=== PATIENT | female | born 1935 | race Caucasian/White ===

== ENCOUNTER 2016-12-10 20:59 | Inpatient (IN) | payer MEDICARE, BC ==
[~2016-12-10] VITALS: Ht 157.5 cm; Wt 63.7 kg
[2016-12-11 00:16] VITALS: BP 122/71
[2016-12-11 01:25] VITALS: BP 123/71
[2016-12-11] MEDS ORDERED: NS + 20MEQ KCL 1,000 ML IV SCH (02:26)
[2016-12-11] MEDS ORDERED: NICOTINE 14MG/24 HR PATCH.TD24 TD SCH (02:30)
[2016-12-11] MEDS ORDERED: LABETALOL 5MG/ML, 20ML IV PRN (02:30)
[2016-12-11] MEDS ORDERED: POLYETHYLENE GLYCOL 17 GM PACKET PO PRN (02:30)
[2016-12-11] MEDS ORDERED: TRAZODONE 50MG TABLET PO PRN (02:30)
[2016-12-11] MEDS ORDERED: BISACODYL 10 MG SUPP PR PRN (02:30)
[2016-12-11] MEDS ORDERED: DOCUSATE 100 MG CAPSULE PO PRN (02:30)
[2016-12-11] MEDS ORDERED: ONDANSETRON 2MG/ML, 2ML IVP PRN (02:30)
[2016-12-11] MEDS: ENOXAPARIN 40 MG/0.4 ML SQ SCH ×2 (03:31→22:54)
[2016-12-11 03:50] LABS: ASPARTATE AMINO TRANSFERASE 120 U/L (15-37); BLOOD UREA NITROGEN 8 mg/dL (7-18)
[2016-12-11 04:05] LABS: DIFF TOTAL CELLS COUNTED 100 CELL DIFF
[2016-12-11 04:18] LABS: ANISOCYTOSIS 1+; HYPOCHROMIA 1+; POLYCHROMASIA 1+
[2016-12-11 04:19] LABS: TARGET CELLS 2+
[2016-12-11 04:21] LABS: LARGE PLATELETS 1+
[2016-12-11] MEDS: INSULIN ASPART 100 UNITS/ML, PEN SQ-INSULIN SCH ×4 (07:00→21:03)
[2016-12-11] MEDS: PANTOPRAZOLE 40 MG IV IVP SCH (07:21)
[2016-12-11] MEDS ORDERED: DEXTROSE 4 GM TAB.CHEW PO PRN (07:30)
[2016-12-11] MEDS ORDERED: GLUCAGON 1 MG IM PRN (07:30)
[2016-12-11] MEDS: DEXTROSE 50%, 50ML SYRINGE IVPush PRN ×2 (07:31→13:23)
[2016-12-11 07:34] VITALS: BP 100/62
[2016-12-11] MEDS: INSULIN DETEMIR 100 UNITS/ML, PEN SQ-INSULIN SCH ×2 (08:39→21:02)
[2016-12-11] MEDS: MORPHINE SULFATE 4 MG/ML, 1ML IVPush PRN (08:45)
[2016-12-11] MEDS: SODIUM CHLORIDE FLUSH 10ML SYR IVF SCH ×2 (08:45→21:02)
[2016-12-11] MEDS ORDERED: POTASSIUM CHLORIDE 40 MEQ in SODIUM CHLORIDE 0.9% 500 ML IV ONE (09:00)
[2016-12-11 14:26] VITALS: BP 103/61
[2016-12-11 14:43] LABS: VERIFY COUNTS? YES
[2016-12-11] MEDS: D5%-0.9% NACL+KCL 20MEQ 1,000 ML IV SCH ×2 (15:01→21:01)
[2016-12-11 20:40] VITALS: BP 110/60
[2016-12-12] MEDS: D5%-0.9% NACL+KCL 20MEQ 1,000 ML IV SCH ×2 (02:11→16:42)
[2016-12-12] MEDS: MORPHINE SULFATE 4 MG/ML, 1ML IVPush PRN ×3 (02:11→19:09)
[2016-12-12 02:13] VITALS: BP 119/69
[2016-12-12] MEDS ORDERED: NS + 20MEQ KCL 1,000 ML IV SCH (02:26)
[2016-12-12 05:44] LABS: ASPARTATE AMINO TRANSFERASE 108 U/L (15-37); BLOOD UREA NITROGEN 6 mg/dL (7-18)
[2016-12-12 06:30] LABS: DIFF TOTAL CELLS COUNTED 100 CELL DIFF
[2016-12-12 06:33] LABS: ANISOCYTOSIS 1+; HYPOCHROMIA 1+; POLYCHROMASIA 1+; TARGET CELLS 2+
[2016-12-12 07:13] LABS: VERIFY COUNTS? YES
[2016-12-12 07:15] VITALS: BP 111/57
[2016-12-12] MEDS: PANTOPRAZOLE 40 MG IV IVP SCH (08:38)
[2016-12-12] MEDS: INSULIN ASPART 100 UNITS/ML, PEN SQ-INSULIN SCH ×4 (08:41→20:10)
[2016-12-12] MEDS: INSULIN DETEMIR 100 UNITS/ML, PEN SQ-INSULIN SCH ×2 (08:42→20:10)
[2016-12-12] MEDS: SODIUM CHLORIDE FLUSH 10ML SYR IVF SCH ×2 (08:43→20:09)
[2016-12-12] MEDS ORDERED: OXYcodone 5 MG/5 ML ORAL.SOL UDC PO PRN (10:30)
[2016-12-12] MEDS ORDERED: ONDANSETRON 2MG/ML, 2ML IVPush PRN (10:30)
[2016-12-12] MEDS ORDERED: FENTANYL PF 100 MCG/2ML IV PRN (10:30)
[2016-12-12] MEDS ORDERED: LABETALOL 5MG/ML, 20ML IV PRN (10:30)
[2016-12-12] MEDS ORDERED: morphine SULFATE 10 MG/ML, 1ML IV PRN (10:30)
[2016-12-12] MEDS ORDERED: hydrALAzine 20 MG/ML, 1ML IV PRN (10:30)
[2016-12-12] MEDS ORDERED: ONDANSETRON 2MG/ML, 2ML ONE (10:45)
[2016-12-12] MEDS ORDERED: ROCURONIUM 10 MG/ML ONE (10:45)
[2016-12-12] MEDS ORDERED: PROPOFOL 10 MG/ML, 20ML ONE (10:45)
[2016-12-12] MEDS ORDERED: SUCCINYLCHOLINE 20 MG/ML, 10ML ONE (10:45)
[2016-12-12] MEDS ORDERED: OMNIPAQUE 350 MG/ML, 50 ML BOTTLE ONE (11:33)
[2016-12-12] MEDS: AMPICILLIN/SULBACTAM 3 GM in SODIUM CHLORIDE 0.9% 100 ML IV SCH ×2 (12:42→18:41)
[2016-12-12 13:33] VITALS: BP 103/60
[2016-12-12 20:40] VITALS: BP 121/64
[2016-12-13] MEDS: AMPICILLIN/SULBACTAM 3 GM in SODIUM CHLORIDE 0.9% 100 ML IV SCH (02:08)
[2016-12-13 02:55] VITALS: BP 99/51
[2016-12-13 04:57] LABS: ASPARTATE AMINO TRANSFERASE 77 U/L (15-37); BLOOD UREA NITROGEN 6 mg/dL (7-18)
[2016-12-13] MEDS: D5%-0.9% NACL+KCL 20MEQ 1,000 ML IV SCH (05:23)
[2016-12-13] MEDS: ENOXAPARIN 40 MG/0.4 ML SQ SCH (05:23)
[2016-12-13 05:49] LABS: DIFF TOTAL CELLS COUNTED 100 CELL DIFF
[2016-12-13 05:51] LABS: ANISOCYTOSIS 1+; VERIFY COUNTS? YES
[2016-12-13 05:52] LABS: HYPOCHROMIA 1+; POLYCHROMASIA 1+; TARGET CELLS 1+
[2016-12-13] MEDS: INSULIN ASPART 100 UNITS/ML, PEN SQ-INSULIN SCH ×4 (07:00→20:33)
[2016-12-13 07:39] VITALS: BP 110/56
[2016-12-13] MEDS: PANTOPRAZOLE 40 MG IV IVP SCH (08:30)
[2016-12-13] MEDS: INSULIN DETEMIR 100 UNITS/ML, PEN SQ-INSULIN SCH ×2 (08:32→20:32)
[2016-12-13] MEDS: SODIUM CHLORIDE FLUSH 10ML SYR IVF SCH ×2 (08:32→20:32)
[2016-12-13] MEDS: PIPERACILLIN/TAZO/PMX 3.375GM 50 ML IV SCH ×3 (11:18→21:13)
[2016-12-13 13:30] VITALS: BP 115/58
[2016-12-13 20:28] VITALS: BP 123/70
[2016-12-13] MEDS ORDERED: OMNIPAQUE 350 MG/ML, 100ML BOTTLE ONE (23:00)
[2016-12-14 01:35] VITALS: BP 124/71
[2016-12-14] MEDS: PIPERACILLIN/TAZO/PMX 3.375GM 50 ML IV SCH ×4 (03:50→21:37)
[2016-12-14] MEDS: ENOXAPARIN 40 MG/0.4 ML SQ SCH (04:00)
[2016-12-14 06:13] LABS: ASPARTATE AMINO TRANSFERASE 51 U/L (15-37); BLOOD UREA NITROGEN 7 mg/dL (7-18)
[2016-12-14 06:22] LABS: DIFF TOTAL CELLS COUNTED 100 CELL DIFF
[2016-12-14 06:23] LABS: ANISOCYTOSIS 1+; POLYCHROMASIA 1+; VERIFY COUNTS? YES
[2016-12-14 06:24] LABS: HYPOCHROMIA 1+; TARGET CELLS 1+
[2016-12-14] MEDS: MORPHINE SULFATE 4 MG/ML, 1ML IVPush PRN ×2 (06:49→18:07)
[2016-12-14 07:20] VITALS: BP 114/64
[2016-12-14] MEDS: PANTOPRAZOLE 40 MG IV IVP SCH (08:31)
[2016-12-14] MEDS: SODIUM CHLORIDE FLUSH 10ML SYR IVF SCH ×2 (08:32→20:27)
[2016-12-14] MEDS: INSULIN ASPART 100 UNITS/ML, PEN SQ-INSULIN SCH ×4 (08:33→20:26)
[2016-12-14] MEDS: INSULIN DETEMIR 100 UNITS/ML, PEN SQ-INSULIN SCH ×2 (08:34→20:26)
[2016-12-14 12:50] VITALS: BP 103/58
[2016-12-14 20:17] VITALS: BP 106/62
[2016-12-15 01:54] VITALS: BP 120/67
[2016-12-15] MEDS: PIPERACILLIN/TAZO/PMX 3.375GM 50 ML IV SCH ×4 (03:13→20:26)
[2016-12-15] MEDS: ENOXAPARIN 40 MG/0.4 ML SQ SCH (04:16)
[2016-12-15] MEDS: INSULIN ASPART 100 UNITS/ML, PEN SQ-INSULIN SCH ×4 (07:00→20:32)
[2016-12-15 07:17] VITALS: BP 101/63
[2016-12-15] MEDS: PANTOPRAZOLE 40 MG IV IVP SCH (07:30)
[2016-12-15] MEDS: INSULIN DETEMIR 100 UNITS/ML, PEN SQ-INSULIN SCH ×2 (08:00→20:31)
[2016-12-15] MEDS: SODIUM CHLORIDE FLUSH 10ML SYR IVF SCH ×2 (09:17→20:26)
[2016-12-15 13:16] VITALS: BP 106/69
[2016-12-15 19:48] VITALS: BP 130/68
[2016-12-16] VITALS (10 sets, daily range): BP systolic 110–147; BP diastolic 68–72
[2016-12-16] MEDS: PIPERACILLIN/TAZO/PMX 3.375GM 50 ML IV SCH ×4 (03:31→22:01)
[2016-12-16 04:59] LABS: ASPARTATE AMINO TRANSFERASE 44 U/L (15-37); BLOOD UREA NITROGEN 10 mg/dL (7-18)
[2016-12-16 05:44] LABS: DIFF TOTAL CELLS COUNTED 100 CELL DIFF
[2016-12-16 05:48] LABS: ANISOCYTOSIS 2+
[2016-12-16 05:49] LABS: HYPOCHROMIA 1+; MICROCYTOSIS 1+; POLYCHROMASIA 1+
[2016-12-16 05:50] LABS: LARGE PLATELETS 1+; TARGET CELLS 1+; VERIFY COUNTS? YES
[2016-12-16] MEDS: ENOXAPARIN 40 MG/0.4 ML SQ SCH (06:11)
[2016-12-16] MEDS: INSULIN ASPART 100 UNITS/ML, PEN SQ-INSULIN SCH ×5 (07:00→21:00)
[2016-12-16] MEDS: SODIUM CHLORIDE FLUSH 10ML SYR IVF SCH ×2 (09:59→22:01)
[2016-12-16] MEDS: INSULIN DETEMIR 100 UNITS/ML, PEN SQ-INSULIN SCH ×2 (10:01→22:03)
[2016-12-16] MEDS ORDERED: FENTANYL PF 100 MCG/2ML ONE (14:09)
[2016-12-16] MEDS ORDERED: NALOXONE 1 MG/ML, 2ML ONE (14:10)
[2016-12-16] MEDS ORDERED: MIDAZOLAM 1 MG/ML, 5ML ONE (14:10)
[2016-12-16] MEDS ORDERED: FLUMAZENIL 0.1 MG/1 ML, 5ML ONE (14:10)
[2016-12-16] MEDS ORDERED: LABETALOL 5MG/ML, 20ML IV PRN (15:39)
[2016-12-16] MEDS ORDERED: POTASSIUM CHLORIDE 40 MEQ in SODIUM CHLORIDE 0.9% 500 ML IV ONE (16:00)
[2016-12-16] MEDS ORDERED: POTASSIUM CHLORIDE 20 MEQ TAB.ER.PRT PO ONE (16:30)
[2016-12-17 00:39] VITALS: BP 131/68
[2016-12-17] MEDS: MORPHINE SULFATE 4 MG/ML, 1ML IVPush PRN (01:06)
[2016-12-17] MEDS: PIPERACILLIN/TAZO/PMX 3.375GM 50 ML IV SCH ×4 (04:10→21:56)
[2016-12-17] MEDS: ENOXAPARIN 40 MG/0.4 ML SQ SCH (04:10)
[2016-12-17 04:32] LABS: BLOOD UREA NITROGEN 8 mg/dL (7-18)
[2016-12-17] MEDS: INSULIN ASPART 100 UNITS/ML, PEN SQ-INSULIN SCH ×4 (07:00→21:57)
[2016-12-17 07:47] VITALS: BP 116/53
[2016-12-17] MEDS: SODIUM CHLORIDE FLUSH 10ML SYR IVF SCH ×2 (08:30→19:50)
[2016-12-17] MEDS ORDERED: SODIUM BICARBONATE 4.2%, 5ML ONE (08:51)
[2016-12-17] MEDS ORDERED: LIDOCAINE 1%, 20ML ONE (08:51)
[2016-12-17] MEDS: INSULIN DETEMIR 100 UNITS/ML, PEN SQ-INSULIN SCH ×2 (10:29→21:58)
[2016-12-17 13:47] VITALS: BP 122/70
[2016-12-17] MEDS ORDERED: PHARMACOKINETIC MONITORING MC PRN (15:30)
[2016-12-17] MEDS ORDERED: PHARMACOKINETIC CONSULTATION MC ONE (15:30)
[2016-12-17] MEDS ORDERED: VANCOMYCIN PER PHARMACY MC PRN (15:30)
[2016-12-17] MEDS: VANCOMYCIN 1,300 MG in SODIUM CHLORIDE 0.9% 250 ML IV SCH (18:01)
[2016-12-17] MEDS: FUROSEMIDE 40 MG/4 ML IV SCH (18:02)
[2016-12-17 18:56] VITALS: BP 123/74
[2016-12-18 01:48] VITALS: BP 122/52
[2016-12-18 04:40] LABS: BLOOD UREA NITROGEN 8 mg/dL (7-18)
[2016-12-18 04:43] LABS: ASPARTATE AMINO TRANSFERASE 47 U/L (15-37)
[2016-12-18] MEDS: PIPERACILLIN/TAZO/PMX 3.375GM 50 ML IV SCH ×3 (06:07→17:28)
[2016-12-18] MEDS: ENOXAPARIN 40 MG/0.4 ML SQ SCH (06:08)
[2016-12-18 06:40] VITALS: BP 114/64
[2016-12-18] MEDS: INSULIN ASPART 100 UNITS/ML, PEN SQ-INSULIN SCH ×4 (08:48→20:49)
[2016-12-18] MEDS: FUROSEMIDE 40 MG/4 ML IV SCH ×2 (08:48→17:28)
[2016-12-18] MEDS: SODIUM CHLORIDE FLUSH 10ML SYR IVF SCH ×2 (08:49→20:54)
[2016-12-18] MEDS: INSULIN DETEMIR 100 UNITS/ML, PEN SQ-INSULIN SCH ×2 (08:50→20:54)
[2016-12-18] MEDS ORDERED: POTASSIUM CHLORIDE 20 MEQ TAB.ER.PRT PO ONE (09:00)
[2016-12-18] MEDS ORDERED: POTASSIUM CHLORIDE 40 MEQ in SODIUM CHLORIDE 0.9% 500 ML IV ONE (09:00)
[2016-12-18 13:09] VITALS: BP 113/68
[2016-12-18] MEDS: VANCOMYCIN 1,300 MG in SODIUM CHLORIDE 0.9% 250 ML IV SCH (15:32)
[2016-12-18 18:57] VITALS: BP 138/76
[2016-12-19 00:23] VITALS: BP 119/56
[2016-12-19] MEDS: PIPERACILLIN/TAZO/PMX 3.375GM 50 ML IV SCH ×5 (01:50→23:30)
[2016-12-19 04:40] LABS: BLOOD UREA NITROGEN 7 mg/dL (7-18)
[2016-12-19 04:45] LABS: ANISOCYTOSIS 1+; HYPOCHROMIA 1+; MICROCYTOSIS 1+; POLYCHROMASIA 1+
[2016-12-19] MEDS: ENOXAPARIN 40 MG/0.4 ML SQ SCH (06:34)
[2016-12-19] MEDS ORDERED: POTASSIUM CHLORIDE 20 MEQ TAB.ER.PRT PO ONE (07:00)
[2016-12-19 07:06] VITALS: BP 116/69
[2016-12-19] MEDS: FUROSEMIDE 40 MG/4 ML IV SCH ×3 (07:09→18:11)
[2016-12-19] MEDS: INSULIN ASPART 100 UNITS/ML, PEN SQ-INSULIN SCH ×4 (07:09→20:50)
[2016-12-19] MEDS: INSULIN DETEMIR 100 UNITS/ML, PEN SQ-INSULIN SCH ×2 (07:09→20:47)
[2016-12-19] MEDS: SODIUM CHLORIDE FLUSH 10ML SYR IVF SCH ×2 (08:43→20:50)
[2016-12-19 12:49] VITALS: BP 99/56
[2016-12-19] MEDS: VANCOMYCIN 1,300 MG in SODIUM CHLORIDE 0.9% 250 ML IV SCH (15:36)
[2016-12-19 18:13] VITALS: BP 113/61
[2016-12-19 20:41] VITALS: BP 146/92
[2016-12-20 03:12] VITALS: BP 104/76
[2016-12-20] MEDS: ENOXAPARIN 40 MG/0.4 ML SQ SCH (05:02)
[2016-12-20] MEDS: PIPERACILLIN/TAZO/PMX 3.375GM 50 ML IV SCH ×3 (05:02→19:26)
[2016-12-20 06:56] LABS: BLOOD UREA NITROGEN 9 mg/dL (7-18)
[2016-12-20 07:40] VITALS: BP 110/48
[2016-12-20 07:58] LABS: DIFF TOTAL CELLS COUNTED 100 CELL DIFF
[2016-12-20 08:00] LABS: ANISOCYTOSIS 1+
[2016-12-20 08:01] LABS: HYPOCHROMIA 1+; TARGET CELLS 1+; VERIFY COUNTS? YES
[2016-12-20] MEDS: POTASSIUM CHLORIDE 20 MEQ TAB.ER.PRT PO SCH (08:19)
[2016-12-20] MEDS: INSULIN ASPART 100 UNITS/ML, PEN SQ-INSULIN SCH ×4 (08:20→21:13)
[2016-12-20] MEDS: SODIUM CHLORIDE FLUSH 10ML SYR IVF SCH ×2 (08:21→21:14)
[2016-12-20] MEDS: INSULIN DETEMIR 100 UNITS/ML, PEN SQ-INSULIN SCH ×2 (08:21→21:13)
[2016-12-20] MEDS ORDERED: LEVOFLOXACIN/PMX 500MG/100ML 100 ML IV SCH (12:00)
[2016-12-20] MEDS ORDERED: POTASSIUM CHLORIDE 20 MEQ TAB.ER.PRT PO ONE (12:00)
[2016-12-20 12:32] VITALS: BP 112/70
[2016-12-20] MEDS: VANCOMYCIN 1,300 MG in SODIUM CHLORIDE 0.9% 250 ML IV SCH (17:15)
[2016-12-20 21:26] VITALS: BP 138/77
[2016-12-21 00:16] VITALS: BP 123/56
[2016-12-21] MEDS: PIPERACILLIN/TAZO/PMX 3.375GM 50 ML IV SCH ×3 (00:45→12:00)
[2016-12-21 05:51] LABS: ASPARTATE AMINO TRANSFERASE 65 U/L (15-37); BLOOD UREA NITROGEN 8 mg/dL (7-18)
[2016-12-21] MEDS: ENOXAPARIN 40 MG/0.4 ML SQ SCH (06:13)
[2016-12-21] MEDS ORDERED: POTASSIUM CHLORIDE 20 MEQ TAB.ER.PRT PO ONE (07:00)
[2016-12-21] MEDS: INSULIN ASPART 100 UNITS/ML, PEN SQ-INSULIN SCH ×3 (07:00→16:00)
[2016-12-21] MEDS ORDERED: FUROSEMIDE 20 MG TABLET PO SCH (09:00)
[2016-12-21] MEDS: SODIUM CHLORIDE FLUSH 10ML SYR IVF SCH (09:00)
[2016-12-21 11:32] VITALS: BP 121/51
[2016-12-21] MEDS: POTASSIUM CHLORIDE 20 MEQ TAB.ER.PRT PO SCH (11:46)
[2016-12-21] MEDS: INSULIN DETEMIR 100 UNITS/ML, PEN SQ-INSULIN SCH (12:03)
[2016-12-21] MEDS ORDERED: TRAM50TA2 PO (12:19)
[2016-12-21] MEDS ORDERED: METR500T PO (12:19)
[2016-12-21] MEDS ORDERED: POTA20TA89 PO (12:19)
[2016-12-21] MEDS ORDERED: FURO20TA3 PO (12:19)
[2016-12-21] MEDS ORDERED: CEFD300C37 PO (12:19)
[2016-12-21 13:14] VITALS: BP 114/60
[2016-12-21] MEDS: VANCOMYCIN 1,300 MG in SODIUM CHLORIDE 0.9% 250 ML IV SCH (15:30)
== END 2016-12-21 17:35 | disposition hospice, home (50) | DRG 871 ==
LOC: 3NW 12-11 00:05
PROVIDERS: ADMIT Internal Medicine
PROC: 0FB98ZX Excision of Common Bile Duct, Via Natural or Artificial Opening Endoscopic, Diagnostic (ICD-10-PCS; 2016-12-12)
PROC: 0F998ZZ Drainage of Common Bile Duct, Via Natural or Artificial Opening Endoscopic (ICD-10-PCS; 2016-12-12)
PROC: BF10YZZ Fluoroscopy of Bile Ducts using Other Contrast (ICD-10-PCS; 2016-12-12)
PROC: 0F798DZ Dilation of Common Bile Duct with Intraluminal Device, Via Natural or Artificial Opening Endoscopic (ICD-10-PCS; principal; 2016-12-12 10:15)
PROC: 0FB13ZX Excision of Right Lobe Liver, Percutaneous Approach, Diagnostic (ICD-10-PCS; 2016-12-16)
PROC: 30233N1 Transfusion of Nonautologous Red Blood Cells into Peripheral Vein, Percutaneous Approach (ICD-10-PCS; 2016-12-16)
PROC: 0W9G3ZZ Drainage of Peritoneal Cavity, Percutaneous Approach (ICD-10-PCS; 2016-12-17)
DX: A41.9 Sepsis, unspecified organism (principal); K83.1 Obstruction of bile duct; E43 Unspecified severe protein-calorie malnutrition; J18.9 Pneumonia, unspecified organism; C25.9 Malignant neoplasm of pancreas, unspecified; J90 Pleural effusion, not elsewhere classified; K83.0 Cholangitis; R18.8 Other ascites; C78.7 Secondary malignant neoplasm of liver and intrahepatic bile duct; D64.9 Anemia, unspecified; E11.9 Type 2 diabetes mellitus without complications; E87.6 Hypokalemia; M19.90 Unspecified osteoarthritis, unspecified site; F17.210 Nicotine dependence, cigarettes, uncomplicated; Z96.643 Presence of artificial hip joint, bilateral; H35.30 Unspecified macular degeneration; I10 Essential (primary) hypertension; M81.0 Age-related osteoporosis without current pathological fracture; Z85.42 Personal history of malignant neoplasm of other parts of uterus; Z68.25 Body mass index [BMI] 25.0-25.9, adult; Z90.710 Acquired absence of both cervix and uterus; Z90.49 Acquired absence of other specified parts of digestive tract; Z88.6 Allergy status to analgesic agent; Z71.6 Tobacco abuse counseling
CPT/HCPCS: 36415; 47000; 49083; 71010; 71020; 71260; 74020; 74328; 76705; 77012; 78226; 80048; 80053; 80076; 80202; 81003; 82140; 82378; 82947; 82962; 83036; 83690; 83735; 84100; 84132; 84439; 84443; 85025; 85610; 86301; 86850; 86900; 86923; 87040; 87070; 87205; 88104; 88112; 88307; 89051; 93005; 93970; 99156; 99157; J0295; J1650; J1815; J1940; J1956; J2250; J2405; J2543; J2704; J3010; J3370; J3480; J3490; Q9967; A9537; C1894; C2625; C9113; C9898; J0330; J2310; J7040; J7050; P9016